=== PATIENT | female | born 1990 | race Two or more races ===

== ENCOUNTER 2018-05-05 16:51 | Outpatient (CLI) | payer OTHER ==
[~2018-05-05 16:51] MED LIST: ACYCLOVIR15 GM TP; CONEX TABLET1 EACH PO; FLONASE16 GM NS; GILTUSS TR TAB1 EACH PO; VOLTAREM 50 MG PO; ZITHROMAX TRI-500 MG PO; ZYRTEC10 MG PO
== END 2018-05-05 16:58 | disposition home or self-care (01) ==
LOC: LAB 16:51
DX: J11.1 Influenza due to unidentified influenza virus with other respiratory manifestations (principal); J20.0 Acute bronchitis due to Mycoplasma pneumoniae

== ENCOUNTER 2018-06-28 07:38 | Outpatient (CLI) | payer OTHER | END 2018-06-28 07:46 | disposition home or self-care (01) | LOC: LAB 07:38 | DX: Z11.3 Encounter for screening for infections with a predominantly sexual mode of transmission (principal) ==

== ENCOUNTER 2018-10-18 15:05 | Outpatient (CLI) | payer OTHER | END 2018-10-18 15:24 | disposition home or self-care (01) | LOC: LAB 15:05 | DX: J11.1 Influenza due to unidentified influenza virus with other respiratory manifestations (principal); J11.81 Influenza due to unidentified influenza virus with encephalopathy ==

== ENCOUNTER 2019-06-09 12:56 | Outpatient (CLI) | payer OTHER | END 2019-06-09 13:02 | disposition home or self-care (01) | LOC: LAB 12:56 | DX: J11.1 Influenza due to unidentified influenza virus with other respiratory manifestations (principal) ==

== ENCOUNTER 2019-09-01 10:14 | Outpatient (CLI) | payer OTHER | END 2019-09-01 10:20 | disposition home or self-care (01) | LOC: LAB 10:14 | PROVIDERS: ATTEND Obstetrics & Gynecology | DX: Z11.3 Encounter for screening for infections with a predominantly sexual mode of transmission (principal); N92.1 Excessive and frequent menstruation with irregular cycle; E78.00 Pure hypercholesterolemia, unspecified ==

== ENCOUNTER 2019-09-25 13:47 | Emergency (ER) | payer OTHER ==
[~2019-09-25] VITALS: Ht 162.6 cm; Wt 93.0 kg
[2019-09-25] MEDS ORDERED: KETO10TA2 PO (15:00)
== END 2019-09-25 15:35 | disposition home or self-care (01) ==
LOC: ER 13:47
DX: S82.64XA Nondisplaced fracture of lateral malleolus of right fibula, initial encounter for closed fracture (principal); S80.12XA Contusion of left lower leg, initial encounter; W18.09XA Striking against other object with subsequent fall, initial encounter; Y93.89 Activity, other specified; Y92.832 Beach as the place of occurrence of the external cause; Y99.8 Other external cause status

== ENCOUNTER 2019-12-13 01:11 | Outpatient (CLI) | payer OTHER ==
[~2019-12-13 01:11] MED LIST changes: +KETO10TA2 PO
== END 2019-12-13 16:52 | disposition home or self-care (01) ==
LOC: PPH VACUNA 01:11
DX: Z23 Encounter for immunization (principal)